=== PATIENT | female | born 1980 | race Asian ===

== ENCOUNTER 2016-06-26 00:15 | Inpatient (IN) | payer SELFPAY ==
[~2016-06-26] VITALS: Ht 165.1 cm; Wt 95.3 kg
[2016-06-26] MEDS ORDERED: PREN1SGL25 PO (02:43)
[2016-06-26] MEDS ORDERED: IRON65TA11 PO (02:44)
[2016-06-26] MEDS ORDERED: MISOPROSTOL 25 MCG TAB VG PRN (02:50)
[2016-06-26] MEDS ORDERED: OXYTOCIN 10 UNITS/ML VIAL IM SCH (02:55)
[2016-06-26] MEDS ORDERED: CARBOPROST 250 MCG/ML AMP IM PRN (02:55)
[2016-06-26] MEDS ORDERED: METHYLERGONOVINE 0.2 MG/ML AMP IM PRN (02:55)
[2016-06-26 03:03] LABS: BASOPHILS # (AUTO) 0.1 K/uL (0.00-0.22); BASOPHILS % (AUTO) 0.7 % (0.0-2.0); EOSINOPHILS # (AUTO) 0.1 K/uL (0-0.4); EOSINOPHILS % (AUTO) 1.3 % (0.0-4.0); HEMATOCRIT 36.5 % (36-48); HEMOGLOBIN 12.5 g/dL (12.0-16.0); LYMPHOCYTES # (AUTO) 1.6 K/uL (2.5-16.5); LYMPHOCYTES % (AUTO) 18.1 % (20.5-51.1); MEAN CORPUSCULAR HEMOGLOBIN 33 pg (27-31); MEAN CORPUSCULAR HGB CONC 34 g/dL (33-37); MEAN CORPUSCULAR VOLUME 96 fL (80-94); MONOCYTES # (AUTO) 0.6 K/uL (0.8-1.0); MONOCYTES % (AUTO) 6.4 % (1.7-9.3); NEUTROPHILS # (AUTO) 6.4 K/uL (1.8-7.7); NEUTROPHILS % (AUTO) 73.5 % (42.2-75.2); PLATELET COUNT (AUTO) 204 K/uL (140-450); RED CELL DISTRIBUTION WIDTH 13.3 % (11.6-13.7); WHITE BLOOD COUNT (AUTO) 8.8 K/uL (4.8-10.8)
[2016-06-26 03:08] VITALS: BP 116/64
[2016-06-26 03:28] LABS: HIV RAPID SCREEN NON-REACTIVE (NON REACTIV)
[2016-06-26] MEDS ORDERED: MISOPROSTOL 25 MCG TAB ONE ×2 (03:50→08:26)
[2016-06-26 04:24] LABS: APPEARANCE,URINE CLEAR (CLEAR); BILIRUBIN,URINE NEGATIVE (NEGATIVE); BLOOD, URINE NEGATIVE (NEGATIVE); COLOR,URINE YELLOW (YELLOW); LEUKOCYTE ESTERASE ,URINE NEGATIVE (NEGATIVE); NITRITE, URINE NEGATIVE (NEGATIVE); PH,URINE 6.5 (5.0-9.0); PROTEIN,URINE TRACE (NEGATIVE); UGLUCOSE NEGATIVE (NEGATIVE); UROBILINOGEN,URINE 0.2 EU/dL (0.2 - 1)
[2016-06-26 04:47] LABS: BACTERIA,URINE OCCASSIONAL /HPF (None Seen); RBC,URINE 0-5 (RARE) /HPF (0-5); WBC,URINE 0-5 (RARE) /HPF (0-5)
[2016-06-26] MEDS ORDERED: OXYTOCIN 20 UNITS/LR PREMIX 1,000 ML IV SCH (06:00)
[2016-06-26] MEDS ORDERED: NALBUPHINE HYDROCHLORIDE 10 MG/ML VIAL ONE (08:26)
[2016-06-26] MEDS ORDERED: PROMETHAZINE 25 MG/ML VIAL ONE (08:27)
[2016-06-26] MEDS ORDERED: PROMETHAZINE 25 MG/ML VIAL IVP PRN (08:35)
[2016-06-26] MEDS ORDERED: NALBUPHINE 10 MG/ML AMP IVP PRN (08:35)
[2016-06-26] MEDS: LACTATED RINGERS 1,000 ML IV SCH ×2 (08:51→12:15)
--- NOTE | 2016-06-26 09:17 | NUR ---
PATIENT HAS BEEN SCREENED AND CATEGORIZED LOW NUTRITION RISK. PATIENT WILL BE SEEN WITHIN 7 DAYS OF ADMISSION. 07/02/[address]
[2016-06-26] MEDS ORDERED: BUPIVACAINE 0.125%/NS PREMIX 250 ML ONE (12:06)
[2016-06-26] MEDS ORDERED: OXYTOCIN 20 UNITS/LR PREMIX 1,000 ML IV ONE (16:12)
[2016-06-26] MEDS ORDERED: OXYTOCIN 10 UNITS/ML VIAL ONE (16:12)
[2016-06-26] MEDS ORDERED: oxyCODONE/APAP 5/325 MG 1 TAB TAB PO PRN (19:10)
[2016-06-26] MEDS ORDERED: MEASLES, MUMPS, AND RUBELLA 1 VIAL SQVAC PRN (19:10)
[2016-06-26] MEDS ORDERED: WITCH HAZEL 40 PAD PACKAGE TP PRN (19:10)
[2016-06-26] MEDS ORDERED: SODIUM PHOSPHATE 118 ML ENEM RC PRN (19:10)
[2016-06-26] MEDS ORDERED: TEMAZEPAM 15 MG CAP PO PRN (19:10)
[2016-06-26] MEDS ORDERED: HYDROcodone/APAP 5/325 MG 1 TAB TAB PO PRN (19:10)
[2016-06-26] MEDS ORDERED: BENZOCAINE/MENTHOL 20%-0.5% 60 GM CAN TP PRN (19:10)
[2016-06-26] MEDS ORDERED: DOCUSATE SOD/SENNA 50/8.6 MG 1 TAB PO SCH (21:00)
[2016-06-27] MEDS ORDERED: INFLUENZA VIRUS VACCINE QUAD 0.5 ML SYR IMVAC SCH (01:00)
[2016-06-27 06:37] LABS: HEMOGLOBIN 11.6 g/dL (12.0-16.0)
[2016-06-27 09:28] LABS: RAPID PLASMA REAGIN NON-REACTIVE (Non Reactiv)
[2016-06-28] MEDS: IBUPROFEN 800 MG TAB PO PRN ×2 (00:21→06:50)
== END 2016-06-28 13:25 | disposition home or self-care (01) | DRG 775 ==
LOC: MFCC 00:15
PROVIDERS: ADMIT Obstetrics & Gynecology; ATTEND Obstetrics & Gynecology
PROC: 10D07Z6 Extraction of Products of Conception, Vacuum, Via Natural or Artificial Opening (ICD-10-PCS; principal; 2016-06-26)
PROC: 3E0P7GC Introduction of Other Therapeutic Substance into Female Reproductive, Via Natural or Artificial Opening (ICD-10-PCS; 2016-06-26)
PROC: 0W8NXZZ Division of Female Perineum, External Approach (ICD-10-PCS; 2016-06-26)
PROC: 00HU33Z Insertion of Infusion Device into Spinal Canal, Percutaneous Approach (ICD-10-PCS; 2016-06-26)
PROC: 3E0R3CZ (ICD-10-PCS; 2016-06-26)
PROC: 3E0234Z Introduction of Serum, Toxoid and Vaccine into Muscle, Percutaneous Approach (ICD-10-PCS; 2016-06-27)
DX: O69.81X0 Labor and delivery complicated by cord around neck, without compression, not applicable or unspecified (principal); Z3A.39 39 weeks gestation of pregnancy; Z37.0 Single live birth; Z23 Encounter for immunization; O09.523 Supervision of elderly multigravida, third trimester
CPT/HCPCS: 36415; 51702; 59200; 81001; 85018; 85025; 86592; 86886; 86900; 86901; 90658; 90715; J2300; J2550; J2590; J3490; J7120